=== PATIENT | male | born 1960 | race Caucasian/White ===

== ENCOUNTER → 2017-05-21 | Outpatient (CLI) | payer OTHER ==
[2017-05-21 13:58] LABS: BASO % 0.4 % (0.0-1.0); EOS # 0.1 K/mm3 (0.0-0.50); EOS % 1.7 % (0.0-3.0); LARGE UNSTAINED CELL # 0.1 K/mm3 (0.0-0.4); LARGE UNSTAINED CELL % 2.1 % (0.0-4.0); LYMPH % 33.2 % (24.0-44.0); MEAN CORPUSCULAR HEMOGLOBIN 31.3 pg (27.0-33.0); MEAN CORPUSCULAR HGB CONC 34.3 g/dl (32.0-36.5); MEAN CORPUSCULAR VOLUME 91.2 fl (80.0-96.0); MONO # 0.3 K/mm3 (0.0-0.8); MONO % 5.8 % (0.0-5.0); NEUTROPHILS # 3.2 K/mm3 (1.8-7.7); NEUTROPHILS % 56.8 % (36.0-66.0); PLATELET COUNT, AUTOMATED 307 k/mm3 (150-450); WHITE BLOOD COUNT 5.6 K/mm3 (4.0-10.0)
[2017-05-21 14:22] LABS: ALBUMIN/GLOBULIN RATIO 1.11 (1.00-1.93); ALKALINE PHOSPHATASE 82 U/L (45-117); ALT/SGPT 37 U/L (12-78); ANION GAP 9 MEQ/L (8-16); AST/SGOT 24 U/L (15-37); BILIRUBIN,TOTAL 0.5 MG/DL (0.2-1.0); BLOOD UREA NITROGEN 13 MG/DL (7-18); CALCIUM LEVEL 8.9 MG/DL (8.5-10.1); CARBON DIOXIDE LEVEL 26 MEQ/L (21-32); CHLORIDE LEVEL 102 MEQ/L (98-107); CHOLESTEROL LEVEL 220 MG/DL (<200); CREATININE FOR GFR 0.84 MG/DL (0.70-1.30); GLOMERULAR FILTRATION RATE > 60.0 (>56); GLUCOSE, FASTING 100 MG/DL (70-105); POTASSIUM SERUM 4.2 MEQ/L (3.5-5.1); SODIUM LEVEL 137 MEQ/L (136-145); TOTAL PROTEIN 7.6 GM/DL (6.4-8.2); TRIGLYCERIDES LEVEL 88 MG/DL (<150)
[2017-05-22 14:16] LABS: PSA TOTAL 0.4 ng/mL (0.0-4.0)
== END ==
LOC: M WUC 09:14
PROVIDERS: ATTEND Nurse Practitioner Family
DX: K21.9 Gastro-esophageal reflux disease without esophagitis (principal); Z12.5 Encounter for screening for malignant neoplasm of prostate; E78.5 Hyperlipidemia, unspecified; I10 Essential (primary) hypertension

== ENCOUNTER → 2017-10-26 | Outpatient (CLI) | payer OTHER ==
--- NOTE | 2017-10-26 20:16 | REP ---
Chest x-ray: Two views. History: Cough. Comparison study: November 13, 2012. Findings: The lungs are symmetrically aerated and clear. Heart is not enlarged. The aorta is somewhat tortuous. Pulmonary vasculature is not increased. Impression: No active disease. Signed by Allan Rueda MD 10/26/2017 08:37 P
== END ==
LOC: M WUC 16:43
PROVIDERS: ATTEND Physician Assistant
DX: J20.9 Acute bronchitis, unspecified (principal)

== ENCOUNTER → 2017-11-11 | Outpatient (CLI) | payer OTHER ==
[~2017-11-11] MED LIST: ISOVUE-370 76% 100ML VIAL (Q9967) As Ordered ONE
--- NOTE | 2017-11-12 07:51 | REP ---
CT of the chest with IV contrast: Comparison is the PA and lateral plain film study dated 10/26/2017. There is a small calcified granuloma inferiorly in the right upper lobe on image 46. There is focal discoid atelectasis versus parenchymal scar in the right middle lobe, right lower lobe and left lower lobe. There is dependent atelectasis. Lung burdick otherwise clear. There are no pleural effusions. There is an enlarged right hilar node measuring 1.0 cm short axis diameter. There is no other mediastinal or hilar adenopathy. There is no axillary adenopathy. The ascending thoracic aorta is mildly dilated measuring 4.5 7 meters transverse diameter. The thoracic aorta is otherwise unremarkable. There is calcified atheroma in the coronary arteries. Cardiac size is normal. The visualized upper abdominal contents are unremarkable except for small upper pole renal cortical cysts bilaterally. Impression: The ascending thoracic aorta is mildly dilated measuring up to 4.5 cm transverse diameter. There is an enlarged right hilar node measuring 1 cm short axis diameter. There are focal zones of discoid atelectasis as described. There is dependent atelectasis. Otherwise, negative CT study of the chest. Signed by Bassem Sol MD 11/12/2017 07:43 A
== END ==
LOC: M RAD 16:55
PROVIDERS: ATTEND Physician Assistant
DX: R06.02 Shortness of breath (principal); R05 Cough
CPT/HCPCS: 71260; Q9967

== ENCOUNTER → 2020-06-08 | Outpatient (CLI) | payer OTHER ==
--- NOTE | 2020-06-10 07:47 | REP ---
MRI RIGHT FOOT WITHOUT CONTRAST: 06/08/2020. CLINICAL HISTORY. 2nd toe possible fracture. Question loose body in a total joint on the right. TECHNIQUE: Coronal and axial T1 and fat suppressed T2 with sagittal T2 STIR sequence. FINDINGS: No prior studies provided at the time of this dictation. There is a small spur at the Achilles insertion and at the plantar aponeurosis intact. Calcaneus shows no bone bruise or fracture. Subtalar joints are intact. There is some fluid posterior to the subtalar joints along the superior surface of the calcaneus. Trace amount of fluid anterior and posterior to the ankle joint proper as well. There is a zone of marrow edema in the dome of the talus centrally and towards the lateral aspect; I cannot confirm an osteochondral defect, however. The mortise joint appears symmetric and preserved. Anterior and middle subtalar joints are unremarkable. T, DL, FHL, PB/PL tendons without tear. There is fluid tracking along the peroneal tendon sheath and the FDL. Trace along the PT tendon sheath. The AT, EHL, and EBL tendons intact. Achilles tendon without a gross tear. Tarsal bones and their articulations grossly intact without bone bruise or fracture. Talonavicular joint normal. Tarsal bones show their T-MT and MTP joints preserved. No fractures, edema, or periosteal reaction of tarsal bones. Extensor tendons and the flexor tendons have normal relationship to the MTP joints and phalanges. Some edema along the distal aspect of the proximal phalanx of the 2nd toe subcutaneous tissues. Edema along the lateral aspect at the middle phalanx. I cannot discern fracture line. I do not see a definite foreign body. There is some trace increased signal in the distal metaphysis of that proximal phalanx of the 2nd toe. No other findings. IMPRESSION: 1. Some soft tissue edema in the area of the distal end of the proximal phalanx 2nd toe without definite foreign body or fracture. There is some mild marrow edema of the distal metaphysis of that bone, however. 2. No gross displaced fracture visible by MR. I do not see any definite loose body in any of the joints. 3. Heel spurs. Electronically Signed by Jeison Dao MD 06/10/2020 08:43 A
== END ==
LOC: M RAD 15:59
PROVIDERS: ATTEND Orthopaedic Surgery
DX: M77.31 Calcaneal spur, right foot (principal); R60.0 Localized edema

== ENCOUNTER → 2020-06-27 | Outpatient (REF) | payer OTHER ==
[2020-07-23 13:50] LABS: HEMOGLOBIN 15.6 g/dl (13.5-17.5); MEAN CORPUSCULAR HEMOGLOBIN 31.2 pg (27.0-33.0); MEAN CORPUSCULAR HGB CONC 33.9 g/dl (32.0-36.5); PLATELET COUNT, AUTOMATED 295 10^3/uL (150-450); WHITE BLOOD COUNT 5.9 10^3/uL (4.0-10.0)
== END ==
LOC: M WUC 15:01
PROVIDERS: ATTEND Physician Assistant
DX: K21.9 Gastro-esophageal reflux disease without esophagitis (principal); I77.89 Other specified disorders of arteries and arterioles; I10 Essential (primary) hypertension; Z12.5 Encounter for screening for malignant neoplasm of prostate

== ENCOUNTER → 2020-12-09 | Outpatient (CLI) | payer SELFPAY | LOC: M LABSMTC 09:07 | PROVIDERS: ATTEND Pediatrics | DX: Z20.822 Contact with and (suspected) exposure to COVID-19 (principal) ==

== ENCOUNTER → 2021-04-24 | Outpatient (CLI) | payer OTHER ==
[~2021-04-24] MED LIST changes: -ISOVUE-370 76% 100ML VIAL (Q9967) As Ordered ONE; +ISOVUE-370 76% 100ML VIAL As Ordered ONE
--- NOTE | 2021-04-24 15:47 | REPVR ---
PROCEDURE INFORMATION: Exam: CT Chest With Contrast; Diagnostic Exam date and time: 04/24/2021 3:14 PM Age: 60 years old Clinical indication: Abnormal findings; Lung mass or nodule; Not specified; Additional info: Lung nodule TECHNIQUE: Imaging protocol: Diagnostic computed tomography of the chest with contrast. 3D rendering (Not supervised by radiologist): MIP and/or 3D reconstructed images were created by the technologist. Radiation optimization: All CT scans at this facility use at least one of these dose optimization techniques: automated exposure control; mA and/or kV adjustment per patient size (includes targeted exams where dose is matched to clinical indication); or iterative reconstruction. Contrast material: ISOVUE 370; Contrast volume: 75 ml; Contrast route: INTRAVENOUS (IV); COMPARISON: CT Chest with contrast 11/11/2017 5:15 PM FINDINGS: Lungs: Small patchy areas of ground-glass density are seen in the lateral right upper lobe on images 29 through 37 of series 202. These likely represent areas of interstitial edema versus atypical or viral pneumonia. The small calcified solid intrapulmonary nodule in the basal segment of the right upper lobe on image 46 of series 202 is unchanged since the previous CT chest study from 11/11/2017. Pleural spaces: Unremarkable. No pneumothorax. No pleural effusion. Heart: The heart size is normal. Normal pulmonary vasculature. Moderately severe coronary artery calcification is present. Pulmonary arteries: No CT evidence of acute pulmonary embolism. Aorta: The ascending thoracic aorta is aneurysmal, measuring 4.6 cm in transverse diameter similar to the previous CT chest study from 11/11/2017. The descending thoracic aorta is slightly enlarged measuring 3.[address] evidence of acute thoracic aortic dissection or acute intramural thoracic aortic hematoma. Lymph nodes: Unremarkable. No enlarged lymph nodes. Kidneys and ureters: Multiple hypodense cortical masses are present in both kidneys, with the largest measuring 2.3 cm in diameter in the mid-pole right kidney on image 114 of series 202. These masses have benign features with thin laboy and homogeneous low attenuation density of less than 20 Hounsfield units and are likely Bosniak type I cysts. Bones/joints: The bony structures of the chest are normal. Soft tissues: Unremarkable. IMPRESSION: 1. No CT evidence of acute pulmonary embolism. 2. The ascending thoracic aorta is aneurysmal, measuring 4.6 cm in transverse diameter similar to the previous CT chest study from 11/11/2017. The descending thoracic aorta is slightly enlarged measuring 3.[address] evidence of acute thoracic aortic dissection or acute intramural thoracic aortic hematoma. 3. The heart size is normal. Normal pulmonary vasculature. Moderately severe coronary artery calcification is present. 4. Small patchy areas of ground-glass density are seen in the lateral right upper lobe on images 29 through 37 of series 202. These likely represent areas of interstitial edema versus atypical or viral pneumonia. The small calcified solid intrapulmonary nodule in the basal segment of the right upper lobe on image 46 of series 202 is unchanged since the previous CT chest study from 11/11/2017. 5. The bony structures of the chest are normal. 6. Multiple hypodense cortical masses are present in both kidneys, with the largest measuring 2.3 cm in diameter in the mid-pole right kidney on image 114 of series 202. These masses have benign features with thin laboy and homogeneous low attenuation density of less than 20 Hounsfield units and are likely Bosniak type I cysts. No further follow-up is recommended. Reference: Raymond ROMERO, Management of the Incidental Renal Mass on CT: A White Paper of the ACR Incidental Findings Committee, J Am Kamari Radiol 2018. COMMENTS: Consistent with the [employer]'s Incidental Findings Committee white paper (J Am Kamari Radiol 2018): Any incidental renal lesion less than 1 cm or classified as too small to characterize, or any incidental cystic renal lesion characterized as simple-appearing, is likely benign. No follow-up imaging is recommended for these lesions per consensus recommendations based on imaging criteria. Electronically signed by: Brandon Lim On 04/24/2021 15:47:24 PM
== END ==
LOC: M RAD 15:01
PROVIDERS: ATTEND Physician Assistant
DX: R91.1 Solitary pulmonary nodule (principal); R93.1 Abnormal findings on diagnostic imaging of heart and coronary circulation; R91.8 Other nonspecific abnormal finding of lung field; R93.429 Abnormal radiologic findings on diagnostic imaging of unspecified kidney
CPT/HCPCS: 71260; Q9967

== ENCOUNTER → 2022-04-03 | Outpatient (CLI) | payer OTHER | LOC: M CARPUL 12:52 | PROVIDERS: ATTEND Registered Nurse | DX: I71.2 Thoracic aortic aneurysm, without rupture (principal); I25.10 Atherosclerotic heart disease of native coronary artery without angina pectoris; J84.10 Pulmonary fibrosis, unspecified; R91.1 Solitary pulmonary nodule; I70.0 Atherosclerosis of aorta; I08.0 Rheumatic disorders of both mitral and aortic valves ==

== ENCOUNTER → 2022-09-03 | Outpatient (CLI) | payer OTHER ==
[2022-09-03 10:29] LABS: HEMATOCRIT 42.6 % (42.0-52.0); HEMOGLOBIN 14.7 g/dl (13.5-17.5); MEAN CORPUSCULAR HEMOGLOBIN 31.3 pg (27.0-33.0); MEAN CORPUSCULAR HGB CONC 34.5 g/dl (32.0-36.5); MEAN CORPUSCULAR VOLUME 90.8 fl (80.0-96.0); PLATELET COUNT, AUTOMATED 289 10^3/uL (150-450); RED BLOOD COUNT 4.69 10^6/uL (4.30-6.10); WHITE BLOOD COUNT 5.6 10^3/uL (4.0-10.0)
[2022-09-03 11:11] LABS: HEMOGLOBIN A1c 5.4 %
[2022-09-03 11:51] LABS: ALBUMIN 3.9 GM/DL (3.2-5.2); ALT/SGPT 41 U/L (12-78); BILIRUBIN,TOTAL 0.7 MG/DL (0.2-1.0); BLOOD UREA NITROGEN 13 MG/DL (7-18); CARBON DIOXIDE LEVEL 28 MEQ/L (21-32); CHLORIDE LEVEL 102 MEQ/L (98-107); CHOLESTEROL LEVEL 152 MG/DL (<200); CHOLESTEROL RISK RATIO 2.268 (<5); CREATININE FOR GFR 0.74 MG/DL (0.70-1.30); FREE T4 0.88 NG/DL (0.76-1.46); GLOMERULAR FILTRATION RATE > 60.0 (>49); GLUCOSE, FASTING 102 MG/DL (70-100); HDL CHOLESTEROL 67 MG/DL (>40); LDL CHOLESTEROL 73 MG/DL (<100); NON-HDL-C 85 MG/DL; POTASSIUM SERUM 4.6 MEQ/L (3.5-5.1); SODIUM LEVEL 135 MEQ/L (136-145); TOTAL PROTEIN 7.7 GM/DL (6.4-8.2); TRIGLYCERIDES LEVEL 59 MG/DL (<150)
[2022-09-03 11:53] LABS: CREATININE, URINE 98.2 MG/DL; MALB URINE SIEMENS 11.5 MG/L; MAU/CREAT RATIO 11.7 MCG/MG (0.0-30.0)
== END ==
LOC: M WUC 08:31
PROVIDERS: ATTEND Physician Assistant
DX: I10 Essential (primary) hypertension (principal); E78.00 Pure hypercholesterolemia, unspecified; R63.5 Abnormal weight gain; Z12.5 Encounter for screening for malignant neoplasm of prostate; I77.89 Other specified disorders of arteries and arterioles

== ENCOUNTER 2022-09-19 08:24 | Emergency (ER) | payer OTHER ==
[~2022-09-19] VITALS: Ht 177.8 cm; Wt 97.1 kg
[2022-09-19] MEDS ORDERED: LEVOTAB10 PO (08:36)
[2022-09-19] MEDS ORDERED: OMEP-173 PO (08:36)
[2022-09-19] MEDS ORDERED: LISI20TA35 PO (08:36)
[2022-09-19] MEDS ORDERED: ATOR40TA75 PO (08:36)
[2022-09-19] MEDS ORDERED: METO1TAB32 PO (08:36)
[2022-09-19] MEDS ORDERED: ACETAMINOPHEN 500 MG TAB PO ONE (09:15)
[2022-09-19] MEDS ORDERED: BOOSTRIX/ADACEL VACCINE (DIPHTH/PERTUSS/ACELL/TETANUS) 0.5ML SYR IM ONE (09:15)
[2022-09-19 10:53] VITALS: BP 113/76
== END 2022-09-19 10:59 | disposition home or self-care (01) ==
LOC: M ED 08:24
DX: S80.812A Abrasion, left lower leg, initial encounter (principal); S80.11XA Contusion of right lower leg, initial encounter; V40.5XXA Car driver injured in collision with pedestrian or animal in traffic accident, initial encounter; I10 Essential (primary) hypertension; K21.9 Gastro-esophageal reflux disease without esophagitis; Z88.0 Allergy status to penicillin

== ENCOUNTER → 2022-11-11 | Outpatient (REF) | payer OTHER ==
[~2022-11-11] MED LIST changes: +ATOR40TA75 PO; -ISOVUE-370 76% 100ML VIAL As Ordered ONE; +LEVOTAB10 PO; +LISI20TA35 PO; +METO1TAB32 PO; +OMEP-173 PO
== END ==
LOC: M SFHCDERM 16:56
PROVIDERS: ATTEND Nurse Practitioner Family
DX: L30.1 Dyshidrosis [pompholyx] (principal)

== ENCOUNTER → 2023-03-30 | Outpatient (CLI) | payer OTHER | LOC: M RAD 08:24 | PROVIDERS: ATTEND Registered Nurse | DX: I71.20 Thoracic aortic aneurysm, without rupture, unspecified (principal); J84.9 Interstitial pulmonary disease, unspecified; I25.10 Atherosclerotic heart disease of native coronary artery without angina pectoris; R91.1 Solitary pulmonary nodule ==

== ENCOUNTER → 2023-09-30 | Outpatient (CLI) | payer OTHER ==
[2023-09-30 10:30] LABS: HEMATOCRIT 43.9 % (42.0-52.0); HEMOGLOBIN 15.6 g/dl (13.5-17.5); MEAN CORPUSCULAR HEMOGLOBIN 31.8 pg (27.0-33.0); MEAN CORPUSCULAR HGB CONC 35.5 g/dl (32.0-36.5); MEAN CORPUSCULAR VOLUME 89.6 fl (80.0-96.0); PLATELET COUNT, AUTOMATED 289 10^3/uL (150-450)
[2023-09-30 10:45] LABS: HEMOGLOBIN A1c 5.2 % (4.0-6.0)
[2023-09-30 11:06] LABS: ALKALINE PHOSPHATASE 91 U/L (46-116); ALT/SGPT 34 U/L (7.0-40); AST/SGOT 25 U/L (<34); BILIRUBIN,TOTAL 1.1 MG/DL (0.3-1.2); BLOOD UREA NITROGEN 12 MG/DL (9-23); CALCIUM LEVEL 9.1 MG/DL (8.3-10.6); CARBON DIOXIDE LEVEL 26 MMOL/L (20-31); CHLORIDE LEVEL 97 MMOL/L (98-107); CHOLESTEROL LEVEL 141 MG/DL (<200); CHOLESTEROL RISK RATIO 2.49 (<5); FREE T4 1.03 NG/DL (0.89-1.76); GLOMERULAR FILTRATION RATE > 60.0 (>49); GLUCOSE, FASTING 93 MG/DL (74-106); HDL CHOLESTEROL 56.6 MG/DL (>40); LDL CHOLESTEROL 67.8 MG/DL (<100); NON-HDL-C 84.4 MG/DL; POTASSIUM SERUM 4.2 MMOL/L (3.5-5.1); SODIUM LEVEL 131 MMOL/L (136-145); THYROID STIMULATING HORMONE 3.148 uIU/ML (0.55-4.78); TOTAL PROTEIN 7.2 G/DL (5.7-8.2); TRIGLYCERIDES LEVEL 83 MG/DL (<150)
== END ==
LOC: M WUC 08:12
PROVIDERS: ATTEND Physician Assistant
DX: K21.9 Gastro-esophageal reflux disease without esophagitis (principal); E78.00 Pure hypercholesterolemia, unspecified; Z13.1 Encounter for screening for diabetes mellitus; Z82.49 Family history of ischemic heart disease and other diseases of the circulatory system; Z12.5 Encounter for screening for malignant neoplasm of prostate; I10 Essential (primary) hypertension

== ENCOUNTER → 2024-03-30 | Outpatient (CLI) | payer MEDICARE | LOC: M RAD 12:52 | PROVIDERS: ATTEND Registered Nurse | DX: I71.21 Aneurysm of the ascending aorta, without rupture (principal); J98.11 Atelectasis; J84.9 Interstitial pulmonary disease, unspecified; R91.8 Other nonspecific abnormal finding of lung field; I70.0 Atherosclerosis of aorta; I25.10 Atherosclerotic heart disease of native coronary artery without angina pectoris; N28.1 Cyst of kidney, acquired ==

== ENCOUNTER → 2024-04-21 | Outpatient (REF) | payer MEDICARE | LOC: M SFHCDERM 16:41 | PROVIDERS: ATTEND Nurse Practitioner Family | DX: L02.91 Cutaneous abscess, unspecified (principal) ==

== ENCOUNTER → 2024-06-20 | Outpatient (REF) | payer MEDICARE | LOC: M SFHCPLAZ 15:45 | PROVIDERS: ATTEND Nurse Practitioner Family | DX: L28.2 Other prurigo (principal) ==

== ENCOUNTER → 2024-06-27 | Outpatient (CLI) | payer MEDICARE ==
[2024-06-27 14:32] LABS: BASO % 0.4 % (0.0-1.0); EOS # 0.1 10^3/uL (0.0-0.5); EOS % 1.3 % (0.0-3.0); HEMATOCRIT 44.7 % (42.0-52.0); HEMOGLOBIN 15.6 g/dl (13.5-17.5); LYMPH # 1.4 10^3/uL (1.5-5.0); LYMPH % 19.1 % (24.0-44.0); MEAN CORPUSCULAR HEMOGLOBIN 31.8 pg (27.0-33.0); MEAN CORPUSCULAR HGB CONC 34.9 g/dl (32.0-36.5); MONO # 0.6 10^3/uL (0.0-0.8); MONO % 8.8 % (2.0-8.0); NEUTROPHILS # 4.9 10^3/uL (1.5-8.5); NEUTROPHILS % 70.1 % (36.0-66.0); PLATELET COUNT, AUTOMATED 281 10^3/uL (150-450); RED BLOOD COUNT 4.91 10^6/uL (4.30-6.10); WHITE BLOOD COUNT 7.1 10^3/uL (4.0-10.0)
[2024-06-27 14:53] LABS: ERYTHROCYTE SEDIMENTATION RATE 23 mm/hr (0-20)
[2024-06-27 14:59] LABS: URIC ACID 6.8 MG/DL (3.7-9.2)
[2024-06-27 15:00] LABS: C REACTIVE PROTEIN QUANTITATIV < 0.40 MG/DL (<1.0)
[2024-06-27 15:02] LABS: ALKALINE PHOSPHATASE 105 U/L (46-116); ALT/SGPT 36 U/L (7.0-40); AST/SGOT 22 U/L (<34); BILIRUBIN,TOTAL 0.7 MG/DL (0.3-1.2); BLOOD UREA NITROGEN 14 MG/DL (9-23); CALCIUM LEVEL 9.1 MG/DL (8.3-10.6); CARBON DIOXIDE LEVEL 27 MMOL/L (20-31); CHLORIDE LEVEL 102 MMOL/L (98-107); GLOMERULAR FILTRATION RATE > 60.0 (>49); GLUCOSE, FASTING 93 MG/DL (74-106); POTASSIUM SERUM 4.3 MMOL/L (3.5-5.1); SODIUM LEVEL 134 MMOL/L (136-145); TOTAL PROTEIN 7.2 G/DL (5.7-8.2)
[2024-06-27 15:12] LABS: RHEUMATOID FACTOR QUANT < 3.5 IU/ML (<14)
[2024-06-27 15:16] LABS: HEPATITIS B SURFACE ANTIGEN NEGATIVE (NEGATIVE)
[2024-06-27 15:29] LABS: HIV 1&2 SCREEN NEGATIVE (NEGATIVE)
[2024-06-27 15:36] LABS: HEPATITIS B CORE ANTIBODY IGM NEGATIVE (NEGATIVE)
[2024-06-27 15:37] LABS: HEPATITIS C VIRUS ABY INDEX < 0.02 INDEX (<0.8)
[2024-06-29 10:28] LABS: QuantiFERON-TB Gold Plus NEGATIVE (NEGATIVE)
[2024-06-30 00:07] LABS: I079-IGE GLUTEN <0.10 kU/L (Class 0)
== END ==
LOC: M LAB 06-25 10:47
PROVIDERS: ATTEND Nurse Practitioner Family
DX: Z01.89 Encounter for other specified special examinations (principal); L28.2 Other prurigo; I10 Essential (primary) hypertension; K21.9 Gastro-esophageal reflux disease without esophagitis; E78.5 Hyperlipidemia, unspecified; I25.10 Atherosclerotic heart disease of native coronary artery without angina pectoris; D18.01 Hemangioma of skin and subcutaneous tissue; L57.0 Actinic keratosis; L81.4 Other melanin hyperpigmentation; L82.1 Other seborrheic keratosis; Z12.83 Encounter for screening for malignant neoplasm of skin

== ENCOUNTER → 2024-10-10 | Outpatient (CLI) | payer MEDICARE | LOC: M PLALAB 15:57 | PROVIDERS: ATTEND Physician Assistant Medical | DX: R21 Rash and other nonspecific skin eruption (principal) ==

== ENCOUNTER → 2024-11-18 | Outpatient (REF) | payer MEDICARE | LOC: M SFHCDERM 11:35 | PROVIDERS: ATTEND Nurse Practitioner Family | DX: L57.8 Other skin changes due to chronic exposure to nonionizing radiation (principal) ==

== ENCOUNTER → 2024-11-18 | Outpatient (CLI) | payer MEDICARE ==
[2024-11-18 10:28] LABS: HEMATOCRIT 44.7 % (42.0-52.0); HEMOGLOBIN 15.5 g/dl (13.5-17.5); MEAN CORPUSCULAR HEMOGLOBIN 31.7 pg (27.0-33.0); MEAN CORPUSCULAR HGB CONC 34.7 g/dl (32.0-36.5); MEAN CORPUSCULAR VOLUME 91.4 fl (80.0-96.0); PLATELET COUNT, AUTOMATED 312 10^3/uL (150-450); RED BLOOD COUNT 4.89 10^6/uL (4.30-6.10); WHITE BLOOD COUNT 7.9 10^3/uL (4.0-10.0)
[2024-11-18 10:55] LABS: PSA SCREENING 0.19 NG/ML (< 4.00)
[2024-11-18 10:58] LABS: ALBUMIN 3.9 G/DL (3.2-5.2); ALKALINE PHOSPHATASE 105 U/L (40-129); ALT/SGPT 38 U/L (7.0-40); AST/SGOT 26 U/L (<34); BLOOD UREA NITROGEN 16 MG/DL (9-23); CALCIUM LEVEL 9.6 MG/DL (8.3-10.6); CARBON DIOXIDE LEVEL 26 MMOL/L (20-31); CHLORIDE LEVEL 101 MMOL/L (98-107); CHOLESTEROL LEVEL 175 MG/DL (<200); CHOLESTEROL RISK RATIO 3.21 (<5); CREATININE FOR GFR 0.71 MG/DL (0.70-1.30); GLOMERULAR FILTRATION RATE > 60.0 (>49); GLUCOSE, FASTING 101 MG/DL (74-106); HDL CHOLESTEROL 54.4 MG/DL (>40); LDL CHOLESTEROL 92.4 MG/DL (<100); NON-HDL-C 120.6 MG/DL; POTASSIUM SERUM 4.4 MMOL/L (3.5-5.1); SODIUM LEVEL 137 MMOL/L (136-145); TOTAL PROTEIN 7.6 G/DL (5.7-8.2); TRIGLYCERIDES LEVEL 141 MG/DL (<150)
[2024-11-18 10:59] LABS: FREE T4 1.07 NG/DL (0.89-1.76); THYROID STIMULATING HORMONE 3.668 uIU/ML (0.55-4.78)
[2024-11-18 11:02] LABS: HEMOGLOBIN A1c 5.4 % (4.0-6.0)
== END ==
LOC: M WUC 08:43
PROVIDERS: ATTEND Physician Assistant
DX: I25.10 Atherosclerotic heart disease of native coronary artery without angina pectoris (principal); I10 Essential (primary) hypertension; E78.00 Pure hypercholesterolemia, unspecified; L28.2 Other prurigo; I77.89 Other specified disorders of arteries and arterioles; Z12.5 Encounter for screening for malignant neoplasm of prostate; Z79.899 Other long term (current) drug therapy

== ENCOUNTER → 2025-03-30 | Outpatient (REF) | payer MEDICARE | LOC: M SFHCADAM 12:49 | PROVIDERS: ATTEND Physician Assistant | DX: J00 Acute nasopharyngitis [common cold] (principal) ==